=== PATIENT | female | born 1990 | race Two or more races ===

== ENCOUNTER 2022-01-26 22:28 | Emergency (ER) | payer SELFPAY ==
[~2022-01-26] VITALS: Ht 175.3 cm; Wt 61.2 kg
[2022-01-26] MEDS ORDERED: CYCLOBENZAPRINE 10 MG TABLET ONE (23:43)
[2022-01-26] MEDS ORDERED: KETOROLAC TROMETHAMINE INJ 30 MG/ML VIAL ONE (23:43)
[2022-01-26 23:52] VITALS: BP 139/88
--- NOTE | 2022-01-26 23:52 | NUR ---
Patient does not wish to proceed with medical care recommended by Dr. Purvis. Patient given information related to possible complications, up to and including , which could occur as a result of leaving the hospital at this time. Patient verbalizes understanding of risks involved due to leaving against medical advice. Patient has signed AMA form.
[2022-01-27] MEDS ORDERED: KETOROLAC TROMETHAMINE INJ 60 MG/2 ML VIAL IM ONE
[2022-01-27] MEDS ORDERED: LIDOCAINE 5% (PATCH) 1 EA PATCH TP SCH
[2022-01-27] MEDS ORDERED: CYCLOBENZAPRINE 10 MG TABLET PO ONE
[2022-01-27] MEDS ORDERED: HYDR-3980 PO (10:17)
== END 2022-01-26 23:54 | disposition left against medical advice (07) ==
LOC: ER 22:29
DX: M54.50 Low back pain, unspecified (principal)
CPT/HCPCS: 99283; 96372; J1885

== ENCOUNTER 2022-01-27 05:16 | Emergency (ER) | payer SELFPAY ==
[~2022-01-27] VITALS: Ht 172.7 cm; Wt 65.8 kg
[2022-01-27] MEDS ORDERED: KETOROLAC TROMETHAMINE INJ 60 MG/2 ML VIAL IM ONE (06:00)
[2022-01-27] MEDS ORDERED: MORPHINE SULFATE INJ 2 MG/ML DISP.SYRIN IM ONE (06:00)
--- NOTE | 2022-01-27 06:00 | NUR ---
BIB SELF. C/O BACK PAIN X6 DAYS. A/OX4. AMB TO BED 6. CONNECTED TO MONITOR.
[2022-01-27] MEDS ORDERED: MORPHINE SULFATE INJ 4 MG/ML DISP.SYRIN ONE (06:26)
[2022-01-27] MEDS ORDERED: KETOROLAC TROMETHAMINE INJ 30 MG/ML VIAL ONE (06:26)
--- NOTE | 2022-01-27 06:44 | NUR ---
URINE COLLECTED AND SENT TO LAB
[2022-01-27 07:23] LABS: BILIRUBIN,URINE 1+ (NEGATIVE); COLOR,URINE YELLOW (YELLOW); LEUKOCYTE ESTERASE ,URINE NEGATIVE (NEGATIVE); NITRITE, URINE NEGATIVE (NEGATIVE); PROTEIN,URINE TRACE mg/dl (NEGATIVE); UGLUCOSE NEGATIVE (NEGATIVE); UROBILINOGEN,URINE 0.2 EU/dL (0.2)
[2022-01-27 07:54] LABS: BACTERIA,URINE Few /HPF (None Seen); RBC,URINE 0-2 /HPF (0-2); SQUAMOUS EPITHELIAL CELL,UR Few /HPF (None Seen); WBC,URINE 0-2 /HPF (0-3)
[2022-01-27] MEDS ORDERED: MORPHINE SULFATE INJ 2 MG/ML DISP.SYRIN IV ONE (08:00)
[2022-01-27] MEDS ORDERED: ONDANSETRON HCL/PF 4 MG/2 ML VIAL IVP ONE (08:00)
[2022-01-27] MEDS ORDERED: IV NS 0.9% 500 ML BAG IV ONE (08:00)
[2022-01-27] MEDS ORDERED: MORPHINE SULFATE INJ 2 MG/ML DISP.SYRIN ONE (08:01)
[2022-01-27] MEDS ORDERED: ONDANSETRON HCL/PF 4 MG/2 ML VIAL ONE (08:01)
--- NOTE | 2022-01-27 08:20 | NUR ---
IV LINE ESTABLISHED ON LAC #20. PHLEB AT BEDSIDE, UNABLE TO DRAW BLOOD AT THIS TIME PT IS HARD STICK; WILL SEND SOMEONE ELSE FROM LAB FOR BLOOD DRAW.
--- NOTE | 2022-01-27 08:30 | NUR ---
TECH AT BEDSIDE FOR ULTRASOUND
--- NOTE | 2022-01-27 09:05 | NUR ---
PHLEB AT BEDSIDE, ABLE TO DRAW BLOOD
--- NOTE | 2022-01-27 09:30 | NUR ---
SOCKS PROVIDED TO PT; ABLE TO AMBULATE TO BATHROOM
[2022-01-27 09:48] LABS: BASOPHILS % (AUTO) 0.4 % (0.0-2.0); EOSINOPHILS % (AUTO) 0.4 % (0.0-6.0); HEMATOCRIT 43 % (33-45); HEMOGLOBIN 12.9 g/dL (11.5-14.8); LYMPHOCYTES # (AUTO) 2.7 K/uL (0.8-4.8); LYMPHOCYTES % (AUTO) 29.5 % (20.0-44.0); MEAN CORPUSCULAR HGB CONC 30 g/dl (31.0-36.0); MEAN CORPUSCULAR VOLUME 75 fL (82-100); MONOCYTES # (AUTO) 0.6 K/uL (0.1-1.30); MONOCYTES % (AUTO) 6.1 % (2.0-12.0); NEUTROPHILS # (AUTO) 5.8 K/uL (1.8-8.9); NEUTROPHILS % (AUTO) 63.6 % (43.0-81.0); PLATELET COUNT (AUTO) 117 K/uL (150-450); RED BLOOD CELL COUNT(AUTO) 5.71 MIL/uL (4.0-5.2); WHITE BLOOD COUNT (AUTO) 9.2 K/uL (4.3-11.0)
[2022-01-27 09:50] LABS: CALCIUM, SERUM 8.5 mg/dL (8.5-10.1); CREATININE 0.6 mg/dL (0.6-1.3); POTASSIUM 4.7 mmol/L (3.5-5.1)
[2022-01-27 10:04] LABS: ALBUMIN 3.8 g/dL (3.4-5.0); BILIRUBIN,DIRECT 0.1 mg/dL (0.0-0.2); BILIRUBIN,TOTAL 0.3 mg/dL (0.2-1.0); TOTAL PROTEIN, SERUM 7.6 g/dL (6.4-8.2)
[2022-01-27] MEDS ORDERED: HYDR-3980 PO (10:17)
--- NOTE | 2022-01-27 10:30 | NUR ---
IV removed. Catheter intact and site benign. Pressure and 4x4 applied to site. No bleeding noted.Patient discharged to home in stable condition. Written and verbal after care instructions given. Patient verbalizes understanding of instruction.
[2022-01-27 10:31] VITALS: BP 127/88
== END 2022-01-27 10:31 | disposition home or self-care (01) ==
LOC: ER 05:18
DX: M54.9 Dorsalgia, unspecified (principal)
CPT/HCPCS: 99284; 96374; 76705; 96375; 85025; 80048; 83690; 80076; 84703; 81001; 36415; 96372 ×2; J2270 ×2; J1885; J2405; J7040

== ENCOUNTER 2022-04-01 19:08 | Emergency (ER) | payer BC ==
[~2022-04-01] VITALS: Ht 172.7 cm; Wt 63.5 kg
[~2022-04-01 19:08] MED LIST: HYDR-3980 PO
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
--- NOTE | 2022-04-01 20:51 | NUR ---
RFA #20G S/L BLOOD COLLECTED AND SENT TO LAB. PT SIGNED WAIVER FORM
[2022-04-01] MEDS ORDERED: MORPHINE SULFATE INJ 4 MG/ML DISP.SYRIN ONE (20:55)
[2022-04-01 20:59] LABS: BASOPHILS % (AUTO) 0.5 % (0.0-2.0); HEMATOCRIT 39 % (33-45); HEMOGLOBIN 11.8 g/dL (11.5-14.8); LYMPHOCYTES # (AUTO) 0.7 K/uL (0.8-4.8); LYMPHOCYTES % (AUTO) 14.2 % (20.0-44.0); MEAN CORPUSCULAR HGB CONC 31 g/dl (31.0-36.0); MEAN CORPUSCULAR VOLUME 72 fL (82-100); MONOCYTES % (AUTO) 0.9 % (2.0-12.0); NEUTROPHILS # (AUTO) 4.1 K/uL (1.8-8.9); NEUTROPHILS % (AUTO) 84.4 % (43.0-81.0); PLATELET COUNT (AUTO) 414 K/uL (150-450); RED BLOOD CELL COUNT(AUTO) 5.35 MIL/uL (4.0-5.2); WHITE BLOOD COUNT (AUTO) 4.9 K/uL (4.3-11.0)
[2022-04-01] MEDS ORDERED: MORPHINE SULFATE 8 MG/ML VIAL IM ONE (21:00)
--- NOTE | 2022-04-01 21:07 | NUR ---
ACCUCHECK [id number]
[2022-04-01 21:10] LABS: CALCIUM, SERUM 9.7 mg/dL (8.5-10.1); CREATININE 0.7 mg/dL (0.6-1.3); POTASSIUM 3.9 mmol/L (3.5-5.1)
--- NOTE | 2022-04-01 21:28 | NUR ---
PT TAKEN TO CT VIA W/C
[2022-04-01] MEDS ORDERED: CT SWABBABLE VALVE TRANS SET 1 EA INFUS.SET MC ONE (21:43)
[2022-04-01] MEDS ORDERED: IOHEXOL-350 100 ML VIAL IV ONE (21:43)
[2022-04-01] MEDS ORDERED: IV NS 0.9% 250 ML IV ONE (21:43)
[2022-04-01 22:04] LABS: LYMPHOCYTES % (MANUAL) 18 % (16-48); MONOCYTES % (MANUAL) 3 % (0-11.0); NEUTROPHILS % (MANUAL) 79 (42-76)
--- NOTE | 2022-04-01 23:15 | NUR ---
Patient discharged to home in stable condition via w/c with mother. Written and verbal after care instructions given. Patient verbalizes understanding of instruction. IV removed. Catheter intact and site benign. Pressure and 4x4 applied to site. No bleeding noted.
[2022-04-01 23:16] VITALS: BP 131/90
== END 2022-04-01 23:16 | disposition home or self-care (01) ==
LOC: ER 19:09
DX: R20.2 Paresthesia of skin (principal); M54.12 Radiculopathy, cervical region; Z88.2 Allergy status to sulfonamides
CPT/HCPCS: 99285; 72131; 70498; 70496; 85025; 80048; 84703; 36415; 85730; 82962; 96372; 85007; J2270 ×2; J7050; Q9967